=== PATIENT | female | born 1960 | race Caucasian/White ===

== ENCOUNTER 2018-04-20 08:05 | Day surgery (SDC) | payer BC ==
[~2018-04-20 08:05] MED LIST: Buffered Lidocaine 0.9% SYRIN* 5 ML/SYR SYRINGE INTRADERM ONE; Dexamethasone TAB* 4 MG PO ONE; DiMENhydriNATE IV* 50 MG/ML VIAL IV PUSH PRN; Famotidine IV* 10 MG/ML 2 ML (20 mg) IV ONE; Morphine VIAL* 4 MG/ML VIAL (1 ml vial) IV PRN; Naloxone* 0.4 MG/ML 1 ML VIAL IV PRN; Ondansetron INJ* 2 MG/ML VIAL ONE; PROCHLORPERAZINE INJ 5 MG/ML 2 ML VIAL IV PRN; fentaNYL* 50 MCG/ML 2 ML VIAL (100 MCG VIAL) IV PRN; oxyCODONE/Acetamin 5/325 MG* TAB PO PRN
[2018-04-20] MEDS ORDERED: Famotidine IV* 10 MG/ML 2 ML (20 mg) ONE (08:35)
[2018-04-20] MEDS ORDERED: Ondansetron ODT TAB* 4 MG ONE (08:35)
[2018-04-20] MEDS ORDERED: Dexamethasone TAB* 4 MG ONE (08:35)
[2018-04-20] MEDS ORDERED: ceFAZolin 2 GM PREMIX in ORs 2 GM/50 ML BAG IVPB ONE (08:36)
[2018-04-20] MEDS ORDERED: Lidocaine 1% INJ* 10 MG/ML 30 ML SDV ONE (09:20)
[2018-04-20] MEDS ORDERED: fentaNYL* 50 MCG/ML 2 ML VIAL (100 MCG VIAL) ONE (09:58)
[2018-04-20] MEDS ORDERED: Midazolam* 1 MG/ML 5 ML VIAL (5 MG) ONE (09:59)
[2018-04-20] MEDS ORDERED: KETAMINE HCL* 50 MG/ML 10 ML VIAL ONE (09:59)
[2018-04-20] MEDS ORDERED: Propofol* 500 MG/50 ML BTL ONE (11:22)
--- NOTE | 2018-04-20 11:29 | BRIEFOPN ---
Brief Operative Note - Surgery Procedures: Procedures OPERATIVE REPORT PRE-OP: Esophageal cancer POST-OP:Same PROCEDURE:PowerPort Insertion right chest, 8F SURGEON: MD Chris ANESTHESIA:Local with MAC [place] ASST:none IVF:min EBL:min SPECIMEN:none DRAIN: none WOUND CLASS:One COMPLICATIONS: none TO PACU
[2018-04-20] MEDS ORDERED: oxyCODONE/Acetamin 5/325 MG* TAB ONE (12:11)
[2018-04-20 12:12] VITALS: BP 134/87
--- NOTE | 2018-04-21 03:54 | OP ---
DATE OF OPERATION: 04/20/18 [facility] DATE OF : 64 SURGEON: Ge Perez M.D. CASHIER GENERAL: None. ANESTHESIOLOGIST: Dr. Napier. ANESTHESIA: Local with monitored anesthesia care. PRE-OP DIAGNOSIS: Recurrent esophageal cancer. POST-OP DIAGNOSIS: Recurrent esophageal cancer. OPERATIVE PROCEDURE: Insertion of an 8-Swedish right chest wall PowerPort. ESTIMATED BLOOD LOSS: Minimal. WOUND CLASSIFICATION: One. DRAINS: None. SPECIMENS: None. DESCRIPTION OF PROCEDURE: Written informed consent was obtained, the right chest was marked with indelible ink and preoperative antibiotics were administered. The patient was taken to the operating room, placed in the supine position. Sequential compression devices and warming blanket were applied. Anesthesia was administered. Then the left and right neck and chest were prepped and draped in usual sterile fashion. Time-out verification was completed. The patient was placed in Trendelenburg position and 1% lidocaine with epinephrine was used to infiltrate in the area along the right anterior chest wall just below the mid clavicular area. An 18-gauge Cook needle was then used to pass into the clavicle and puncture the subclavian vein on the first pass. There was good blood return. The guidewire was inserted and there was a rather sharp angulation by using fluoroscopy and manipulating the guidewire under fluoro. I was able to pass the guidewire successfully down into the superior vena cava as confirmed by fluoroscopy. Only one stick was required. Next, additional lidocaine was infiltrated in the right chest wall inferior to the stick site and a transverse incision was made and a subcutaneous pocket inferior to this incision was created large enough to fit the port. The catheter was then tunneled from the pocket site to the initial puncture site in the usual sterile fashion. Under direct vision, the catheter was then inserted into the junction between the superior vena cava and the right atrium using the dilator and sheath peel away system in the usual fashion. The catheter was then cut to the appropriate length and attached to the port, which was placed in the pocket. The port was sutured to the subcutaneous tissue in 2 separate areas using 3-0 Prolene sutures. The port was then accessed and withdrew blood well with a Murillo needle and flushed well with saline and subsequently was flushed with heparinized saline solution. Hemostasis was assured. The incision was closed in layers of 3-0 and 4-0 Vicryl suture. Steri-Strips and a sterile occlusive Tegaderm dressing were applied. The patient tolerated the procedure well, was taken to the recovery room in stable condition. Postprocedural chest x-ray showed the catheter to be in good position without evidence of pneumothorax. [id number]/[facility] #: [id number] MTDD
== END 2018-04-20 12:51 | disposition home or self-care (01) ==
LOC: OR 08:05
PROVIDERS: ATTEND Surgery
DX: C15.9 Malignant neoplasm of esophagus, unspecified (principal); K21.9 Gastro-esophageal reflux disease without esophagitis; F17.210 Nicotine dependence, cigarettes, uncomplicated; Z79.899 Other long term (current) drug therapy
CPT/HCPCS: 71045; 76000; A9270-GY; C1788; J0690; J1642; J2250; J2704; J3010; J8540

== ENCOUNTER 2018-08-17 08:55 | Observation (INO) | payer BC ==
[2018-08-17] MEDS ORDERED: diPHENhydraMINE IV* 50 MG/ML 1 ml VIAL (BENADRYL) ONE (09:15)
[2018-08-17] MEDS ORDERED: Famotidine IV* 10 MG/ML 2 ML (20 mg) ONE (09:15)
[2018-08-17] MEDS ORDERED: methylPREDNISolone 125 MG* 2 ML VIAL ONE (09:15)
[2018-08-17] MEDS ORDERED: EPINEPHrine PEN ADULT(NF) 0.3 MG SYRINGE IM PRN (09:19)
[2018-08-17] MEDS ORDERED: Famotidine IV* 10 MG/ML 2 ML (20 mg) IV PRN (09:30)
[2018-08-17] MEDS ORDERED: diPHENhydraMINE IV* 50 MG/ML 1 ml VIAL (BENADRYL) IV PRN (09:30)
[2018-08-17] MEDS ORDERED: methylPREDNISolone 125 MG* 2 ML VIAL IV PRN (09:32)
[2018-08-17] MEDS ORDERED: NS 0.9% 1000 ML** 1,000 ML IV PRN (09:37)
[2018-08-17] MEDS ORDERED: Dexamethasone IV* 4 MG/ML 5 ML VIAL (20 MG) ONE (10:00)
[2018-08-17] MEDS ORDERED: Famotidine IV* 10 MG/ML 2 ML (20 mg) IV ONE (10:00)
[2018-08-17] MEDS ORDERED: Palonosetron* 0.25 MG in PREMIX* 0 ML IV ONE (10:00)
[2018-08-17] MEDS ORDERED: diPHENhydraMINE IV* 50 MG/ML 1 ml VIAL (BENADRYL) IV ONE (10:00)
[2018-08-17] MEDS ORDERED: D5W IVPB ONE ×5 (10:30→15:00)
[2018-08-17] MEDS ORDERED: OXALIPLATIN FOR DESENSIT C IVPB ONE (10:30)
[2018-08-17] MEDS ORDERED: OXALIPLATIN FOR DESENSIT B IVPB ONE (11:30)
[2018-08-17] MEDS ORDERED: OXALIPLATIN FOR DESENSIT A IVPB ONE (12:30)
[2018-08-17] MEDS ORDERED: OXALIPLATIN IVPB ONE ×2 (13:30→15:00)
[2018-08-17] MEDS ORDERED: Prochlorperazine TAB* 10 MG PO PRN (15:50)
[2018-08-17] MEDS ORDERED: LORazepam TAB(*) 1 MG PO PRN (15:50)
[2018-08-17] MEDS ORDERED: Ondansetron TAB* 4 MG PO PRN (15:50)
[2018-08-17] MEDS ORDERED: Albuterol HFA INHALER* 8 gm MDI INH PRN (15:50)
[2018-08-17] MEDS ORDERED: oxyCODONE TAB* 5 MG TAB PO SCH (17:00)
[2018-08-17] MEDS ORDERED: Leucovorin Calcium* 35 MG in D5W 250 ML BAG* 250 ML IVPB ONE (17:00)
--- NOTE | 2018-08-17 17:10 | DS ---
- Discharge Summary Admit OBV: 08/17/18 Discharge date: 08/17/18 Discharge diagnosis: 1. Esophageal cancer: stable disease, no change in plan of care 2. Mucositis: cont. rinses 3. Anemia: labs pending Discharge Medications: resume all home meds, cont. chemotherapy as ordered Medication Instructions Recorded Confirmed Type Prochlorperazine TAB* [Compazine 10 mg PO QID PRN 04/30/14 08/17/18 History Tab*] Ondansetron TAB* [Zofran 4 MG Tab*] 4 mg PO Q6H PRN 06/13/15 08/17/18 History Albuterol HFA INHALER* [Ventolin 2 puff INH ONCE PRN 04/16/18 08/17/18 History HFA Inhaler*] Citalopram TAB* [Celexa TAB*] 10 mg PO BID 04/16/18 08/17/18 History LORazepam TAB(*) [Ativan 1 MG TAB 1 mg PO QID PRN 04/16/18 08/17/18 History (*)] Omeprazole CAP (NF) [Prilosec CAP* 20 mg PO BID 04/16/18 08/17/18 History 20 MG] oxyCODONE TAB* [Roxycodone TAB 5 5 mg PO QID 04/16/18 08/17/18 History mg*] ARIPiprazole 5 mg PO DAILY 07/02/18 08/17/18 History Biotin 10,000 mcg PO DAILY 08/17/18 08/17/18 History Ferrous Sulfate TAB* BID 08/17/18 History Magnesium Oxide [Magnesium] 400 mg PO BID 08/17/18 08/17/18 History Diet: as tolerated Activity: as tolerated Disposition: stable Hospital Course: Please see admission note for full H&P. Ms. Blas was admitted for an Oxaliplatin extended infusion due to reaction with her prior treatment two weeks ago. She received her medication challenge without difficulty. She did require an extra dose of Benadryl due to facial flushing without pruritus or respiratory symptoms. She had no further rash. She will be discharged home resuming her home meds and completing her continuous infusion 5-FU. She will follow-up with oncology for unhook on 08/19 and routine chemo f/u on 08/27.
[2018-08-17 18:22] VITALS: BP 141/94
[2018-08-17] MEDS ORDERED: FLUOROURACIL IVPB ONE (19:00)
[2018-08-17] MEDS ORDERED: NS 0.9% IVPB ONE (19:00)
[2018-08-17] MEDS ORDERED: Magnesium Oxide TAB* 400 MG PO SCH (21:00)
[2018-08-17] MEDS ORDERED: Pantoprazole TAB * 40 MG TAB PO SCH (21:00)
[2018-08-17] MEDS ORDERED: Citalopram TAB* 40 MG PO SCH (21:00)
[2018-08-18] MEDS ORDERED: BIOTIN 10000 MCG PO SCH (09:00)
[2018-08-18] MEDS ORDERED: ARIPiprazole TAB* 5 MG PO SCH (09:00)
== END 2018-08-17 20:05 | disposition home or self-care (01) ==
LOC: ICU 09:01 → INTOOBSV 09:01
PROVIDERS: ADMIT Internal Medicine Hematology & Oncology; ATTEND Internal Medicine Hematology & Oncology
DX: C15.9 Malignant neoplasm of esophagus, unspecified (principal); K12.30 Oral mucositis (ulcerative), unspecified; D64.9 Anemia, unspecified; Z79.899 Other long term (current) drug therapy
CPT/HCPCS: 96372; 96374; 96375; 96376; 99219; A9270-GY; G0378; J0640; J1100; J1200; J2469; J2930; J9190; J9263

== ENCOUNTER 2018-09-07 09:41 | Observation (INO) | payer BC ==
[2018-09-07] MEDS ORDERED: Enoxaparin(*) 40 MG/0.4 ML SYR SUBCUT SCH (10:00)
[2018-09-07] MEDS ORDERED: OXALIPLATIN FOR DESENSIT B IVPB ONE (11:30)
[2018-09-07] MEDS ORDERED: D5W IVPB ONE ×4 (11:30→14:30)
[2018-09-07] MEDS ORDERED: Famotidine IV* 10 MG/ML 2 ML (20 mg) IV SLOW PU PRN (11:31)
[2018-09-07] MEDS ORDERED: EPINEPHrine PEN ADULT(NF) 0.3 MG SYRINGE IM PRN (11:31)
[2018-09-07] MEDS ORDERED: diPHENhydraMINE IV* 50 MG/ML 1 ml VIAL (BENADRYL) SLOW PUSH PRN (11:31)
[2018-09-07] MEDS ORDERED: methylPREDNISolone 125 MG* 2 ML VIAL IV PRN (11:32)
[2018-09-07] MEDS ORDERED: OXALIPLATIN FOR DESENSIT A IVPB ONE (12:30)
[2018-09-07] MEDS ORDERED: OXALIPLATIN IVPB ONE ×2 (13:30→14:30)
[2018-09-07] MEDS ORDERED: Prochlorperazine TAB* 10 MG PO PRN (15:49)
[2018-09-07] MEDS ORDERED: LORazepam TAB(*) 1 MG PO PRN (15:49)
[2018-09-07] MEDS ORDERED: oxyCODONE TAB* 5 MG TAB PO PRN (15:49)
[2018-09-07] MEDS ORDERED: Ondansetron TAB* 4 MG PO PRN (15:49)
[2018-09-07] MEDS ORDERED: fentaNYL PATCH 12 MCG/HR TRANSDERM SCH (16:00)
[2018-09-07] MEDS ORDERED: Leucovorin Calcium* 35 MG in D5W 250 ML BAG* 250 ML IVPB ONE (16:30)
[2018-09-07] MEDS ORDERED: fentaNYL Patch Check Q Shift 1 NOTE SCH (19:00)
[2018-09-07 19:44] VITALS: BP 142/79
[2018-09-07] MEDS ORDERED: Pantoprazole TAB * 40 MG TAB PO SCH (21:00)
[2018-09-07] MEDS ORDERED: Citalopram TAB* 10 MG PO SCH (21:00)
--- NOTE | 2018-09-08 17:43 | DS ---
- Discharge Summary Admission Date: 09/07/18 Discharge date: 09/07/18 Discharge Diagnosis: 1. Metastatic esophageal cancer: plan for restaging scans in next 2 weeks Discharge Medications: Resume all home meds, no change Diet: as tolerated Activity: as tolerated Disposition: D/C home, stable Hospital course: Please see admission note for full H&P, however briefly, Ms. Blas was admitted observation for her second Oxaliplatin prolonged infusion, challenge related to prior reaction. She received further dose reductions of her 5FU d/t side effects. She completed her treatment without difficulty and no obvious reactions or complications noted. She is being discharged home with routine f/ u in oncology as well as planned imaging. She has been instructed on management of side effects and how and when to call. She will return to our office for unhook of her 5FU continuous infusion on 09/10.
== END 2018-09-07 19:39 | disposition home or self-care (01) ==
LOC: MED 09:51
PROVIDERS: ADMIT Internal Medicine Hematology & Oncology; ATTEND Internal Medicine Hematology & Oncology
DX: C15.9 Malignant neoplasm of esophagus, unspecified (principal); Z92.21 Personal history of antineoplastic chemotherapy; Z87.2 Personal history of diseases of the skin and subcutaneous tissue
CPT/HCPCS: 96372; 96374; 99219; A9270-GY; G0378; J0640; J1200; J2930; J9263

== ENCOUNTER → 2018-12-09 00:31 | Emergency (ER) | payer BC ==
[~2018-12-09 00:31] MED LIST changes: -Buffered Lidocaine 0.9% SYRIN* 5 ML/SYR SYRINGE INTRADERM ONE; -Dexamethasone TAB* 4 MG PO ONE; -DiMENhydriNATE IV* 50 MG/ML VIAL IV PUSH PRN; +ED cefTRIAXone 1 GM/50 ML 1 GM/50 ML PREMIX.SET IVPB ONE; -Famotidine IV* 10 MG/ML 2 ML (20 mg) IV ONE; +Iohexol 300* (CONTRAST) 10 ML SDV IV ONE; +Metoclopramide IV* 5 MG/ML 2 ML VIAL IV SLOW PU ONE; -Morphine VIAL* 4 MG/ML VIAL (1 ml vial) IV PRN; +NS 0.9% 1000 ML** 1,000 ML IV ONE; -Naloxone* 0.4 MG/ML 1 ML VIAL IV PRN; -Ondansetron INJ* 2 MG/ML VIAL ONE; -PROCHLORPERAZINE INJ 5 MG/ML 2 ML VIAL IV PRN; +cefTRIAXone(*) 1 GM in NS 0.9% 50 ML* 50 ML IVPB ONE; -fentaNYL* 50 MCG/ML 2 ML VIAL (100 MCG VIAL) IV PRN; +fentaNYL* 50 MCG/ML 2 ML VIAL (100 MCG VIAL) IV SLOW PU ONE; -oxyCODONE/Acetamin 5/325 MG* TAB PO PRN
--- NOTE | 2018-12-09 01:16 | ED ---
Abdominal Pain/Female - HPI Summary HPI Summary: This patient is a 58 year old F presenting [place] [facility] [place] by friend with a chief complaint of worsening abdominal pain since 2200 on 12/08/18. Pt is currently undergoing chemotherapy and is taking a new medication, Xeloda 2x for the past 2 days. Per triage, the patient rates the pain 5/10 in severity. Patient denies vomiting. Pt previously had esophageal cancer and had a bypass surgery on Jul 04, 2014. Pt was in remission for 4 years, and the cancer returned last Mar. Pt denies having any blockages previously. Pt has a hernia. - History of Current Complaint Chief Complaint: EDAbdPain Stated Complaint: NEW CHEMO/ABD PAIN PER PT Time Seen by Provider: 12/09/18 00:59 Hx Obtained From: Patient Onset/Duration: Sudden Onset, Lasting Hours Timing: Hours Severity Initially: Mild Severity Currently: Moderate Pain Intensity: 5 Pain Scale Used: 0-10 Numeric Radiates: No Alleviating Factor(s): Nothing Associated Signs and Symptoms: Negative: Vomiting Allergies/Adverse Reactions: Allergies Allergy/AdvReac Type Severity Reaction Status Date / Time No Known Allergies Allergy Verified 12/09/18 00:34 Home Medications: Home Medications ARIPiprazole [Aripiprazole] 2 mg PO DAILY 12/09/18 [History Confirmed 12/09/18] Xeloda (NF) 3,000 mg PO DAILY 12/09/18 [History Confirmed 12/09/18] PMH/Surg Hx/FS Hx/Imm Hx Endocrine/Hematology History: Reports: Hx Sickle Cell Disease - sickle cell trait, Denies: Hx Diabetes, Hx Systemic Lupus Erythematosus Cardiovascular History: Denies: Hx Congestive Heart Failure, Hx Hypertension Respiratory History: Comment Only: Hx Chronic Obstructive Pulmonary Disease (COPD) - MALIGNANT NEOPLASM OF THE LOWER THIRD OF ESOPHAGUS GI History: Reports: Other GI Disorders - ESOPHAGEAL History: Reports: Hx Kidney Stones - HX OF 25 YEARS Denies: Hx Dialysis, Hx Renal Disease Musculoskeletal History: Denies: Hx Rheumatoid Arthritis Comment Only: Other Musculoskeletal History - left knee pain 2 yrs hx Sensory History: Reports: Hx Contacts or Glasses - GLASSES Denies: Hx Hearing Aid Opthamlomology History: Reports: Hx Contacts or Glasses - GLASSES Psychiatric History: Reports: Hx Anxiety - ON MEDICATION FOR, Hx Depression - ON MEDICATION FOR - Cancer History Cancer Type, Location and Year: ESOPHAGEAL Hx Chemotherapy: Yes - 4 YEARS AGO Hx Radiation Therapy: Yes - Surgical History Surgery Procedure, Year, and Place: hysterectomy, abd surgery. BIOPSY- BRONCHOSCOPY AND UPPER GI. powerport 07/28 Hx Anesthesia Reactions: No Infectious Disease History: No Infectious Disease History: Denies: Traveled Outside the [place] in Last 30 Days - Social History Occupation: Employed Full-time Alcohol Use: Weekly Alcohol Amount: 1-2 PER WEEK Substance Use Type: Reports: Marijuana Substance Use Comment - Amount & Last Used: MEDICAL MARIJUANA- DAILY Smoking Status (MU): Light Every Day Tobacco Smoker Type: Cigarettes Amount Used/How Often: 1/2 PPD X 40 YEARS Have You Smoked in the Last Year: Yes Review of Systems Negative: Fever Positive: Abdominal Pain. Negative: Vomiting All Other Systems Reviewed And Are Negative: Yes Physical Exam - Summary Physical Exam Summary: VITAL SIGNS: Reviewed. GENERAL: Patient is a well-developed and nourished female who is lying comfortable in the stretcher. Patient is not in any acute respiratory distress. HEAD AND FACE: No signs of trauma. No ecchymosis, hematomas or skull depressions. No sinus tenderness. EYES: PERRLA, EOMI x 2, No injected conjunctiva, no nystagmus. EARS: Hearing grossly intact. Ear canals and tympanic membranes are within normal limits. MOUTH: Oropharynx within normal limits. NECK: Supple, trachea is midline, no adenopathy, no JVD, no carotid bruit, no c- spine tenderness, neck with full ROM CHEST: Symmetric, no tenderness at palpation LUNGS: Clear to auscultation bilaterally. No wheezing or crackles. CVS: Regular rate and rhythm, S1 and S2 present, no murmurs or gallops appreciated. ABDOMEN: Soft, non-tender. No rebound no guarding, and no masses palpated. Moderate abdomen distension, hyperactive bowel sounds EXTREMITIES: FROM in all major joints, no edema, no cyanosis or clubbing. NEURO: Alert and oriented x 3. No acute neurological deficits. Speech is normal and follows commands. SKIN: Dry and warm Triage Information Reviewed: Yes Vital Signs On Initial Exam: Initial Vitals Temp Pulse Resp BP Pulse Ox 97.4 F 105 18 149/96 98 12/09/18 00:32 12/09/18 00:32 12/09/18 00:32 12/09/18 00:32 12/09/18 00:32 Vital Signs Reviewed: Yes Diagnostics - Vital Signs Vital Signs Temp Pulse Resp BP Pulse Ox 12/09/18 00:32 97.4 F 105 18 149/96 98 - Laboratory Result Diagrams: 12/09/18 01:24 12/09/18 01:24 Lab Statement: Any lab studies that have been ordered have been reviewed, and results considered in the medical decision making process. - CT Chest/ABD/Pel CT CT Interpretation Completed By: Radiologist Summary of CT Findings: CT Chest/ABD/Pel reveals, per radiologist, IMPRESSION: 1. Patient is status post esophagectomy with the placement of a gastric pullup. 2. Abnormal lymph node in the middle mediastinum. Abnormally enlarged. mediastinal lymph node with focal area of necrosis. The lymph nodes have not. significantly changed in size since previous CT study. ED physician has reviewed this radiology report. Re-Evaluation - Re-Evaluation First Eval Re-Evaluation Time: 04:16 Comment: Discussed results and plan of care with pt. Abdominal Pain Fem Course/Dx - Course Course Of Treatment: This patient is a 58 year old F presenting [place] [facility] [place] friend with a chief complaint of worsening abdominal pain since 2200 on 12/08/18. Pt is currently undergoing chemotherapy and is taking a new medication, Xeloda 2x for the past 2 days. Per triage, the patient rates the pain 5/10 in severity. Patient denies vomiting. Pt previously had esophageal cancer and had a bypass surgery on Jul 04, 2014. Pt was in remission for 4 years , and the cancer returned last Mar. Pt denies having any blockages previously. Pt has a hernia. Physical Exam Findings are moderate abdomen distension, hyperactive bowel sounds. Blood work obtained. WBC is 20.8, RDW is 18, MPV is 7.1, sodium is 133, potassium is 5.1, BUN/Creatinine Ratio is 30.0, Glucose is 114, Calcium is 11.1, Alkaline Phosphatase is 115. CT Chest/ABD/Pel reveals, per radiologist, IMPRESSION: 1. Patient is status post esophagectomy with the placement of a gastric pullup. 2. Abnormal lymph node in the middle mediastinum. Abnormally enlarged. mediastinal lymph node with focal area of necrosis. The lymph nodes have not. significantly changed in size since previous CT study. In the ED course the patient was given Rocephin, fentanyl, reglan, and fluids. Pt CT scan did not show any acute finding, symptoms are mostly likely secondary to Xeloda. Patient will be discharged with follow up from PCP. The patient is agreeable with this plan. - Diagnoses Provider Diagnoses: Abdominal pain Discharge - Sign-Out/Discharge Documenting (check all that apply): Patient Departure - Discharge Patient Received Moderate/Deep Sedation with Procedure: No - Discharge Plan Condition: Stable Disposition: HOME Patient Education Materials: Abdominal Pain (ED) Referrals: Jose Serrato MD [Primary Care Provider] - 3 Days Additional Instructions: PLEASE RETURN TO THE ED IMMEDIATELY FOR WORSENING OR CONCERNING SYMPTOMS. FOLLOW UP WITH PRIMARY CARE PHYSICIAN WITHIN 3 DAYS. - Attestation Statements Document Initiated by Scribe: Yes Documenting Scribe: Glory Parsons Provider For Whom Siddharthibe is Documenting (Include Credential): Dr. Irma Mariee Scribe Attestation: Glory Mccauley, scribed for Dr. Irma Mariee on 12/09/18 at 0416. Status of Scribe Document: Ready
[2018-12-09 01:35] LABS: Hematocrit 41 % (35-47); Hemoglobin 13.8 g/dL (12.0-16.0); Mean Corpuscular HGB Conc 33 g/dL (31-36); Mean Corpuscular Hemoglobin 31 pg (27-31); Mean Corpuscular Volume 93 fL (80-97); Mean Platelet Volume 7.1 fL (7.4-10.4); Platelet Count 387 10^3/uL (150-450); Red Blood Count 4.44 10^6 /uL (3.70-4.87); Red Cell Distribution Width 18 % (10-15); White Blood Count 20.8 10^3/uL (3.5-10.8)
[2018-12-09 01:36] LABS: ABS Basophils 0.1 10^3/ul (0-0.2); ABS Eosinophils 0.3 10^3/ul (0-0.6); ABS Lymphocytes 1.5 10^3/ul (1.0-4.8); ABS Monocytes 1.7 10^3/ul (0-0.8); ABS Neutrophils 17.2 10^3/ul (1.5-7.7); Eosinophil % 1.5 %; Lymphocyte % 7.3 %
[2018-12-09 01:43] LABS: Activated Partial Thrombo Time 34.4 seconds (26.0-38.0); INR 0.99 (0.82-1.09)
[2018-12-09 01:54] LABS: Albumin 4.8 g/dL (3.2-5.2); Albumin/Globulin Ratio 1.2 (1-3); C Reactive Protein 5.69 mg/L (<8.01); Calcium 11.1 mg/dL (8.6-10.3); EGFR African American 89.8 (>60); EGFR Non-African American 74.2 (>60); Globulin 3.9 g/dL (2-4); Potassium 5.1 mmol/L (3.5-5.0); Total Bilirubin 0.4 mg/dL (0.2-1.0); Total Protein 8.7 g/dL (6.4-8.9)
[2018-12-09 04:25] VITALS: BP 130/94
== END | disposition home or self-care (01) ==
LOC: ED 00:31
DX: R10.9 Unspecified abdominal pain (principal); Z79.899 Other long term (current) drug therapy; C15.5 Malignant neoplasm of lower third of esophagus; F17.210 Nicotine dependence, cigarettes, uncomplicated; J43.2 Centrilobular emphysema
CPT/HCPCS: 36415; 71260; 74177; 80053; 82150; 83605; 83690; 85025; 85610; 85730; 86140; 96361; 96365; 96375; 99283; J2765; J3010; Q9967